=== PATIENT | female | born 1975 | race Two or more races ===

== ENCOUNTER 2023-06-27 19:20 | Emergency (ER) | payer OTHER ==
[~2023-06-27] VITALS: Ht 154.9 cm; Wt 120.2 kg
[~2023-06-27 19:20] MED LIST: NORVASC5 MG
== END 2023-06-28 01:31 | disposition home or self-care (01) ==
LOC: ER 19:20
DX: G44.209 Tension-type headache, unspecified, not intractable (principal); Z91.041 Radiographic dye allergy status